=== PATIENT | female | born 1955 | race African-American/Black ===

== ENCOUNTER 2017-11-29 17:07 | Emergency (ER) | payer BC ==
[2017-11-29 17:26] VITALS: BP 148/94
--- NOTE | 2017-11-29 17:56 | ER Document Report ---
ED General - General Chief Complaint: Pain All Over Stated Complaint: HEADACHE Time Seen by Provider: 11/29/17 17:38 Mode of Arrival: Ambulatory Information source: Patient - HPI Notes: 8-year-old female presents today with complaints of headache, cough myalgias and high fever 1 day. Decreased appetite, drinking without issues. Has tried [id number] ibuprofen and Tylenol but not on a scheduled. Worse with time, nothing makes better. Pain is 4 out of 10, achy. denies fevers, chills, chest pain, shortness of breath, nausea, vomiting, diarrhea, abdominal pain, hematuria,blurred vision, double vision, loss of vision, speech changes, LH, dizziness, syncope, headaches, neck pain, weakness, bowel or bladder dysfunction, saddle anesthesia, numbness or tingling in bilateral upper or lower extremities equally, muscle paralysis, weakness in bilateral upper or lower extremities equally or rash - Related Data Allergies/Adverse Reactions: No Known Allergies Allergy (Verified 11/29/17 17:09) Past Medical History - General Information source: Patient - Social History Smoking Status: Unknown if Ever Smoked Chew tobacco use (# tins/day): No Frequency of alcohol use: None Drug Abuse: None Family History: Reviewed & Not Pertinent Patient has suicidal ideation: No Patient has homicidal ideation: No - Past Medical History Cardiac Medical History: Reports: Hx Hypertension Endocrine Medical History: Reports: Hx Hyperthyroidism Renal/ Medical History: Denies: Hx Peritoneal Dialysis Malignancy Medical History: Reports: Hx Breast Cancer - X2 Past Surgical History: Reports: Hx Breast Surgery - mastectomy bilateral, Hx Section, Hx Gynecologic Surgery, Hx Mastectomy - bilateral 1998 and 2003, Hx Tubal Ligation - Immunizations Hx Diphtheria, Pertussis, Tetanus Vaccination: Yes Review of Systems - Review of Systems Constitutional: See HPI EENT: See HPI Cardiovascular: No symptoms reported Respiratory: No symptoms reported Gastrointestinal: No symptoms reported Genitourinary: No symptoms reported Female Genitourinary: No symptoms reported Musculoskeletal: No symptoms reported Skin: No symptoms reported Hematologic/Lymphatic: No symptoms reported Neurological/Psychological: No symptoms reported Physical Exam - Vital signs Vitals: Temp Pulse Resp BP Pulse Ox 100.9 F H 92 16 148/94 H 97 11/29/17 17:25 11/29/17 17:25 11/29/17 17:25 11/29/17 17:25 11/29/17 17:25 - Notes Notes: PHYSICAL EXAMINATION: GENERAL: Well-appearing, well-nourished and in no acute distress. HEAD: Atraumatic, normocephalic. EYES: Pupils equal round and reactive to light, extraocular movements intact, conjunctiva are normal. ENT: TM intact with bilateral serous effusion, no erythema. Nares boggy bilaterally, oropharynx with erythema without exudates. Moist mucous membranes. NECK: Normal range of motion, supple without lymphadenopathy LUNGS: Breath sounds clear to auscultation bilaterally and equal. No wheezes rales or rhonchi. HEART: Regular rate and rhythm without murmurs ABDOMEN: Soft, nontender, nondistended abdomen. No guarding, no rebound. No masses appreciated. Female : deferred Musculoskeletal: Normal range of motion, no pitting or edema. No cyanosis. NEUROLOGICAL: Cranial nerves grossly intact. Normal speech, normal gait. Normal sensory, motor exams PSYCH: Normal mood, normal affect. SKIN: Warm, Dry, normal turgor, no rashes or lesions noted. Course - Re-evaluation Re-evalutation: Patient clinically appears to have influenza. Advised to increase hydration with Pedialyte, decreased fevers by giving antipyretics such as Tylenol and ibuprofen on a staggered dosing schedule. Advised to rest. Advised to stay home as to not expose any other individuals to flu. Patient is still experiencing high fevers while on a rotating schedule of ibuprofen and Tylenol, not drinking, return to the emergency room immediately. Follow-up with PCP within 3 days. All questions and concerns answered by this provider. Patient felt okay to be discharged home. - Vital Signs Vital signs: Temp Pulse Resp BP Pulse Ox 100.9 F H 92 16 148/94 H 97 11/29/17 17:25 11/29/17 17:25 11/29/17 17:25 11/29/17 17:25 11/29/17 17:25 Discharge - Discharge Clinical Impression: Flu syndrome Condition: Good Disposition: HOME, SELF-CARE Instructions: Influenza ([facility]) 4741-5377 Additional Instructions: Influenza What are conditions that should receive medical attention? The development of difficulty breathing. Lip color changes to blue or purple. Persistent vomiting and unable to keep liquids down with signs of dehydration such as: dizziness when standing, unable to urinate, or if child/ is crying no tears are noticed. Is less responsive than normal or becomes confused. How do I decrease the spread of flu in my home? Taking care of the sick patient at home: Keep the sick person in a room separate from the common areas of the house. Keep the "sickroom" door closed. If the person with the flu needs to leave the home, they should cover their nose/mouth when coughing or sneezing and wear a disposable (surgical) mask if available. These masks may be available at your local pharmacy, medical supply and hardware store. If the sick person is in common areas of the house, have them wear a surgical mask. If possible, have the sick person use a separate bathroom that should be cleaned daily with a household disinfectant. If you are the caregiver: Avoid being face to face with the sick adult person as much as possible. Try to stay at least 6 feet away and wear a disposable surgical mask when possible. When holding small children who are sick, place their chin on your shoulder so that they will not cough in your face. Wash your hands after you touch the sick person or handle their tissues and laundry. Wear a mask if you leave home, as you may be infected from taking care of someone and not know it yet. Watch yourself and others in the home for flu symptoms and contact your doctor if symptoms occur. NOTE: Antiviral medication used to reduce the symptoms of the flu works only if taken within 48 hours, and best within 24 hours of symptom onset. Household Cleaning, laundry and waste disposal: Tissues and other disposable items used by the sick person should be thrown away in the trash. Wash your hands after touching these used items. No special waste disposal is required. Keep surfaces (especially bedside tables, bathroom surfaces, and toys for children) clean by wiping them down with a safe household disinfectant according to the directions on the product label. Per CDC advice, most people will not receive testing to confirm flu. Also based on the person's health history and onset of symptoms, not all patients will receive prescriptions for antiviral medications. If you have questions related to this, please ask your healthcare provider. For more information, you can call the Centers for Disease Control and Prevention (CDC) Hotline at 0-275-ZUX-Queryday This line is available in Filipino and [place]an, 24 hours a day, 7 days a week. Or wwwFishbowl or www.cdc.gov Flu-Like Illness Home Instructions: The influenza virus infection can cause a wide rage of symptoms, including: Fever, cough, sore throat, body aches, headaches, chills, fatigue, with some patients reporting diarrhea and vomiting Like seasonal influenza A, H1N1 ("swine flu")in humans can vary in severity from mild to severe Severe illness with pneumonia, respiratory failure and even is possible Certain groups might be more likely to develop a severe illness from H1N1 infection. Sometimes bacterial infections may occur at the same time as or after infection with influenza viruses and lead to pneumonias, ear infections, or sinus infections. How Flu Spreads The main way that influenza viruses spread is through respiratory droplets of coughs and sneezes. This can happen when someone with the infection coughs or sneezes and the particles fly through the air and land on other people and surfaces. If the person covers their mouth and nose with their hand but does not wash their hands immediately, then these germs are passed onto the next object that they touch. People with Influenza A or suspected H1N1 (swine flu) who are cared for at home should: Check with their doctor about any special care that they might need if they are or have a health condition such as diabetes, heart disease, asthma or emphysema. Also, limit caregiver to one (if possible). women or those with chronic health conditions should not take care of the flu patient unless necessary. Check with their doctor about whether or not medications are needed that may lessen the symptoms of the flu. Stay at home until 24 hours fever free without the use of fever reducing medication. Get plenty of rest and avoid other healthy people in your home. Drink plenty of clear liquids to keep from getting dehydrated. Take medications like Tylenol (Acetaminophen), Advil/Motrin/Nuprin ( Ibuprofen) or Aleve (Naproxen) for fevers and aches. All children under the age of 18 years of age should not take aspirin or products containing aspirin (e.g. Pepto Bismol), as this can cause a rare serious illness called Julio C Syndrome. Over the counter medications for flu and colds may help, but it is very important to follow the package directions. Remember that the medicine may help the symptoms, but it will not help prevent others from getting sick if they are around you. Cover coughs and sneezes using your bent arm. Clean hands with soap and water or an alcohol-based hand rub often, especially after using tissues to cough or sneeze. Encourage hand washing frequently for all people living in the home! The sick person should not have visitors other than caregivers. Encourage concerned loved ones to call instead of visit. Avoid close contact with others-do not go to work or school while sick. Return immediately for any new or worsening symptoms. Follow up with primary care provider, call tomorrow to make followup appointment. Prescriptions: Albuterol Sulfate [Ventolin HFA MDI 18 GM] 1 - 2 puff IH Q4H PRN #1 mdi PRN Reason: Oseltamivir Phosphate [Tamiflu 75 mg Capsule] 75 mg PO BID #10 capsule Prednisone 20 mg PO BID #10 tablet Forms: Return to Work Referrals: EMILIANO GERONIMO MD [ACTIVE STAFF] - Follow up as needed (within 3 days)
== END 2017-11-29 18:19 | disposition home or self-care (01) ==
LOC: ER 17:07
DX: J11.1 Influenza due to unidentified influenza virus with other respiratory manifestations (principal); M79.1 Myalgia; R51 Headache; R05 Cough; R50.9 Fever, unspecified; Z85.3 Personal history of malignant neoplasm of breast; Z98.51 Tubal ligation status
CPT/HCPCS: 99284